=== PATIENT | female | born 1940 | race Hispanic/Latino ===

== ENCOUNTER 2021-10-05 10:03 | Emergency (ER) | payer MEDICARE, OTHER ==
[~2021-10-05] VITALS: Ht 162.6 cm; Wt 77.1 kg
[2021-10-05] MEDS ORDERED: OXYMETAZOLINE HCL 0.05% NAS 1 SPRAY BTL ONE (10:45)
[2021-10-05] MEDS ORDERED: ULTRACET TABLE1 EACH PO (12:11)
== END 2021-10-05 13:55 | disposition home or self-care (01) ==
LOC: ER 10:10
DX: R04.0 Epistaxis (principal); I10 Essential (primary) hypertension; K21.9 Gastro-esophageal reflux disease without esophagitis
CPT/HCPCS: 99284